=== PATIENT | male | born 1945 | race Caucasian/White ===

== ENCOUNTER → 2019-05-05 | Outpatient (CLI) | payer OTHER ==
--- NOTE | 2019-05-05 10:29 | KCIC ---
VENOUS UPPER EXTREMITY LEFT History: Left upper extremity swelling. History of Hodgkin's lymphoma. Comparison: None. Procedure: Color flow Doppler, Doppler spectral analysis, and 2D images are obtained with and without compression in the jugular vein, subclavian vein, axillary vein, brachial vein, radial vein, ulnar vein, and basilic and cephalic veins. Findings: Partial thrombus within the left axillary and proximal basilic vein. Patent left internal jugular, subclavian, brachial, radial and ulnar veins with normal compressibility and augmentation. IMPRESSION: 1. Partial thrombus within the left axillary and proximal basilic veins. FOR INTERNAL CODING PURPOSES Critical result: Findings discussed with Dr. Najera's office at 05/05/2019 10:20 AM. The office stated send the patient to the office and the patient will be seen today. RESULT CODE: (C) Electronically signed by: Pedro Pelaez DO (05/05/2019 10:26 AM) [id number]
== END | disposition home or self-care (01) ==
LOC: KCIC US 09:00
PROVIDERS: ATTEND Nurse Practitioner Acute Care
DX: I82.890 Acute embolism and thrombosis of other specified veins (principal); Z85.71 Personal history of Hodgkin lymphoma
CPT/HCPCS: 93971